=== PATIENT | male | born 1985 | race Caucasian/White ===

== ENCOUNTER 2016-07-17 18:51 | Emergency (ER) | payer SELFPAY ==
[~2016-07-17] VITALS: Ht 177.8 cm; Wt 80.0 kg
[2016-07-17 18:52] VITALS: BP 130/74; PULSE 94; RESP 20; TEMP 99.4; O2SAT 99
--- NOTE | 2016-07-17 20:11 | PD ---
HPI Chief Complaint: Skin Problem Time Seen by Provider: 20:10 Travel History International Travel<30 days: No Contact w/Intl Traveler<30days: No Traveled to known affect area: No History of Present Illness HPI 30-year-old right-hand dominant male with history of IVDU presents to the ED for evaluation of pain and swelling of the left wrist 3 weeks. Patient states this was a previous injection site. He states he's in an inpatient rehabilitation currently. States that the pain and redness in the arm has waxed and waned. He states that he hit the wrists against something hard today which caused increase in the pain. He denies numbness, tingling, weakness or limitations to ROM of the extremity. Denies fevers, chills. He states that before seeking treatment today he used an X-Acto knife to cut into the area, which produced a small amount of blood. PFSH Social History Alcohol Use: No Tobacco Use: No Substance Use: No Allergies-Medications (Allergen,Severity, Reaction): Coded Allergies: No Known Allergies (Unverified , 07/17/16) Reported Meds & Prescriptions Reported Meds & Active Scripts Active Ibuprofen 800 Mg Tab 800 Mg PO Q8H PRN Keflex (Cephalexin) 250 Mg Cap 250 Mg PO Q6H 10 Days Bactrim DS (Sulfamethoxazole-Trimethoprim) 800-160 Mg Tab 1 Tab PO BID Review of Systems Except as stated in HPI: all other systems reviewed are Neg Physical Exam Narrative GENERAL: Well-nourished, well-developed nontoxic appearing white male in no acute distress. SKIN: Focused skin assessment warm/dry. SKIN: There is an area over the induration in the left wrist which measures about 3 cm in diameter. Non pulsatile. No fluctuance. No pointing. No drainage. There is a zone of inflammation around it but no lymphangitis. There is a 1 cm laceration over the area. No active bleeding. No visible foreign body. HEAD: Normocephalic. EYES: No scleral icterus. No injection or drainage. NECK: Supple, trachea midline. No JVD or lymphadenopathy. CARDIOVASCULAR: Regular rate and rhythm without murmurs, gallops, or rubs. RESPIRATORY: Breath sounds clear and equal bilaterally. No accessory muscle use. GASTROINTESTINAL: Abdomen soft, non-tender, nondistended. Active bowel sounds. MUSCULOSKELETAL: No cyanosis, or edema. Patient ambulatory with a normal gait. FOCUSED LEFT UPPER EXTREMITY EXAM: 2+ radial pulse. Patient retains full, active, painless range of motion of the extremity. Strong embossing machine tender strength. Sensation intact to light touch distally. Cap refill less than 2 seconds. BACK: Nontender without obvious deformity. No CVA tenderness. Data Data Last Documented VS Vital Signs Date Time Temp Pulse Resp B/P Pulse Ox O2 Delivery O2 Flow Rate FiO2 07/17/16 18:52 99.4 94 20 130/74 99 Room Air Orders Us Arm Venous Doppler (07/17/16 19:42) Abscess Culture And Gram Stain (07/17/16 21:08) Sulfamet-Trimeth Ds 800-160 Mg (Bactrim (07/17/16 21:30) Cephalexin (Keflex) (07/17/16 21:30) Ibuprofen (Motrin) (07/17/16 21:30) MDM Medical Decision Making Medical Screen Exam Complete: Yes Emergency Medical Condition: Yes Differential Diagnosis Superficial thrombophlebitis versus abscess versus cellulitis versus other Narrative Course 30-year-old right-hand dominant male with history of IVDU presents to the ED for evaluation of pain and swelling of the left wrist 3 weeks. Patient states this was a previous injection site. He states he's in an inpatient rehabilitation currently. States that the pain and redness in the arm has waxed and waned. He states that he hit the wrists against something hard today which caused increase in the pain. He denies numbness, tingling, weakness or limitations to ROM of the extremity. Denies fevers, chills, N/V. He states that before seeking treatment today he used an X-Acto knife to cut into the area, which produced a small amount of blood. Vitals reviewed. Physical exam reveals a nontoxic-appearing white male in no acute distress. There is a 2-3 cm ropey induration on the radial aspect of the left wrist. Nonpulsatile. No fluctuance , pointing or drainage. 1 cm laceration over this area with no active bleeding or visible foreign body. 2+ radial pulse distally. Patient retains full, active, painless lower limb of the extremity. Strong embossing machine tender strength. Neurovascularly intact. No thrombus noted on venous ultrasound. There is a fluid suspicious for abscess. Abscess I&D was performed. Please see procedure note for details. Patient was prescribed Bactrim, Keflex and ibuprofen. First doses administered in the ED. He is instructed to keep the wound clean, dry, covered, take all antibiotics as prescribed, follow up with the primary care provider. He indicated understanding of the instructions and is agreeable to the care plan. The patient is stable and discharged home. Procedures Procedure Narrative INCISION AND DRAINAGE OF ABSCESS: The area was prepped and was sterilely draped. A subcutaneous wheal of 1 % Xylocaine with a total number 2mL was used to anesthetize the area properly. A number 11 scalpel was used to make a 1 -cm incision across the area of the abscess. The abscess was drained, complex loculations were broken down, and irrigated with normal saline. Cultures were obtained. Sterile dressing applied. Patient advised to keep the wound clean and dry and covered. Diagnosis Primary Impression: Abscess, wrist Referrals: Primary Care Physician Patient Instructions: Abscess Incision and Drainage (ED), General Instructions Additional Instructions: Keep the wound clean, dry and covered. Take all antibiotics as prescribed, even if symptoms resolve. Follow-up with primary care provider. Return to the ED for any urgent or emergent medical condition. Med/Other Pt SpecificInfo: Prescription(s) given Scripts Ibuprofen 800 Mg [id number] Mg PO Q8H PRN (Pain/Inflammation) #15 TAB Ref 0 Prov:Abdifatah Hook MD 07/17/16 Cephalexin (Keflex)250 Mg [id number] Mg PO Q6H 10 Days Ref 0 Prov:Abdifatah Hook MD 07/17/16 Sulfamethoxazole-Trimethoprim (Bactrim DS)800-160 Mg Tab1 Tab PO BID #14 TAB Ref 0 Prov:Abdifatah Hook MD 07/17/16 Disposition: 01 DISCHARGE HOME Condition: Stable Shelley Aquino July 17, 2016 20:11
[2016-07-17] MEDS ORDERED: IBUP800T23 PO (20:28)
[2016-07-17] MEDS ORDERED: BACT800T5 PO (20:28)
[2016-07-17] MEDS ORDERED: CEPH-459 PO (20:28)
[2016-07-17] MEDS ORDERED: SULFAMETHOXAZOLE-TRIMETHOPRIM DS 800-160 MG TAB PO ONE (21:30)
[2016-07-17] MEDS ORDERED: CEPHALEXIN MONOHYDRATE 500 MG CAP PO ONE (21:30)
[2016-07-17] MEDS ORDERED: IBUPROFEN 800 MG TAB PO ONE (21:30)
--- NOTE | 2016-07-17 21:49 | RADRPT ---
EXAM DATE/TIME: 07/17/2016 20:52 [facility] COMPARISON: No previous studies available for comparison. INDICATIONS : Left arm pain and swelling. MEDICAL HISTORY : IV drug user. SURGICAL HISTORY : None. ENCOUNTER: Initial ACUITY: 3 weeks PAIN SCORE: 9/10 LOCATION: Left arm. FINDINGS: There is spontaneous flow documented in the brachial, basilic, cephalic, axillary, and subclavian vei ns. The vessels are compressible and augmentation response is documented. No filling defects are se en. The flow is phasic with respiration. Direction of flow in the jugular vein is caudal. CONCLUSION: 1. No deep venous or superficial thrombus noted. In the left wrist laterally there is a complex fluid filled area measuring up to 3.6 x 2 x 1 cm with some peripheral increased vascularity. This could re present an area of hematoma formation or possibly a phlegmonous infectious mass. Fletcher Cloud MD on July 17, 2016 at 21:46 Board Certified Radiologist. This report was verified electronically.
== END 2016-07-17 22:08 | disposition home or self-care (01) ==
LOC: NEPD 18:51
DX: L02.414 Cutaneous abscess of left upper limb (principal)
CPT/HCPCS: 10060; 87070; 87205; 93971